=== PATIENT | female | born 1990 | race Caucasian/White ===

== ENCOUNTER 2018-05-17 11:52 | Emergency (ER) | payer OTHER ==
[2018-05-17] MEDS ORDERED: Sodium Chloride 0.9% 1,000 ML IV STA (12:44)
[2018-05-17 12:59] LABS: BASO # 0.01 K/mm3 (0.0-2.0); BASO % 0.1 % (0.0-3.0); EOS # 0.1 (0.0-0.7); EOS % 0.8 % (1.5-5.0); GRAN # 9.21 (1.4-6.5); GRAN % 79.8 % (50.0-68.0); HEMOGLOBIN 11.5 g/dL (12.0-16.0); LYMPH # 1.6 (1.2-3.4); LYMPH % 13.8 % (22.0-35.0); MEAN CELL VOLUME 79.7 fl (80.0-105.0); MEAN CORPUSCULAR HEMOGLOBIN 27.5 pg (25.0-35.0); MEAN CORPUSCULAR HGB CONC 34.5 g/dl (31.0-37.0); MEAN PLATELET VOLUME 8.3 fl (7.0-11.0); MONO # 0.6 (0.1-0.6); MONO % 5.5 % (1.0-6.0); RBC 4.18 10^6/uL (3.5-6.1); RED CELL DISTRIBUTION WIDTH 13.3 % (11.5-14.5); WHITE BLOOD COUNT 11.5 10^3/ul (4.5-11.0)
[2018-05-17 13:04] LABS: ALB/GLOB RATIO 1.1 (1.1-1.8); ALT/SGPT 15 U/L (7-56); AST/SGOT 10 U/L (14-36); BLOOD UREA NITROGEN 8 mg/dL (7-21); CALCIUM 9.7 mg/dL (8.4-10.5); GFR AFRICAN-AMERICAN > 60; GFR NON-AFRICAN AMERICAN > 60; INR 1.02; PARTIAL THROMBOPLASTIN TIME 28.8 Seconds (25.1-36.5); PROTHROMBIN TIME 11.6 SECONDS (9.4-12.5)
--- NOTE | 2018-05-17 13:33 | ED PDOC ---
Arrival/HPI - General Historian: Patient <Rubio Son A - Last Filed: 05/17/18 19:45> <Nima Rincon - Last Filed: 05/19/18 11:51> - General Chief Complaint: Female Genitourinary Time Seen by Provider: 05/17/18 11:57 - History of Present Illness Narrative History of Present Illness (Text): 05/17/18 13:23 27yo female who present to ED for evaluation. States she is currently 15weeks and had brownish vaginal discharge last night. She states that it resolved last night. She spoke with her OB's office today and was advised to go to ED for evaluation. She denies abdominal pain, nausea, vomiting, dizziness , any other complaint. (Rubio Son A) Past Medical History - Provider Review Nursing Documentation Reviewed: Yes - Psychiatric Hx Psychophysiologic Disorder: No Hx Substance Use: No <AdelaidaRubio A - Last Filed: 05/17/18 19:45> Family/Social History - Physician Review Nursing Documentation Reviewed: Yes Family/Social History: Unknown Family HX Smoking Status: Never Smoked Hx Alcohol Use: No Hx Substance Use: No <AdelaidaRubio A - Last Filed: 05/17/18 19:45> Allergies/Home Meds <AdelaidaRubio A - Last Filed: 05/17/18 19:45> <Nima Rincon - Last Filed: 05/19/18 11:51> Allergies/Adverse Reactions: Allergies No Known Allergies Allergy (Verified 05/17/18 12:09) Review of Systems - Physician Review All systems were reviewed & negative as marked: Yes - Review of Systems Constitutional: Normal Eyes: Normal ENT: Normal Respiratory: Normal Cardiovascular: Normal Gastrointestinal: Normal Genitourinary Female: Vaginal Bleeding Musculoskeletal: Normal Skin: Normal Neurological: Normal Endocrine: Normal Hemo/Lymphatic: Normal Psychiatric: Normal <AdelaidaRubio A - Last Filed: 05/17/18 19:45> Physical Exam Vital Signs Reviewed: Yes Temperature: Afebrile Blood Pressure: Normal Pulse: Regular Respiratory Rate: Normal Appearance: Positive for: Well-Appearing, Non-Toxic, Comfortable Pain Distress: None Mental Status: Positive for: Alert and Oriented X 3 - Systems Exam Head: Present: Atraumatic, Normocephalic Pupils: Present: PERRL Extroacular Muscles: Present: EOMI Conjunctiva: Present: Normal Mouth: Present: Moist Mucous Membranes Neck: Present: Normal Range of Motion Respiratory/Chest: Present: Clear to Auscultation, Good Air Exchange. No: Respiratory Distress, Accessory Muscle Use Cardiovascular: Present: Regular Rate and Rhythm, Normal S1, S2. No: Murmurs Abdomen: No: Tenderness, Distention, Peritoneal Signs Back: Present: Normal Inspection Upper Extremity: Present: Normal Inspection. No: Cyanosis, Edema Lower Extremity: Present: Normal Inspection. No: Edema Neurological: Present: GCS=15, CN II-XII Intact, Speech Normal Skin: Present: Warm, Dry, Normal Color. No: Rashes Psychiatric: Present: Alert, Oriented x 3, Normal Insight, Normal Concentration <Rubio Son A - Last Filed: 05/17/18 19:45> Vital Signs Pulse Resp BP Pulse Ox 05/17/18 16:51 87 18 120/89 99 05/17/18 14:55 87 18 110/79 100 Medical Decision Making <Rubio Son A - Last Filed: 05/17/18 19:45> <Nima Rincon - Last Filed: 05/19/18 11:51> ED Course and Treatment: 05/17/18 19:45 PT present to ED For stated history. she denied vaginal bleeding and abdominal pain in ED. Lab was ordered and reviewed. Unremarkable. Trace leukocyte with WBC was noted in her UA and was placed on Macrobid. age US IMPRESSION: Single live intrauterine fetus in variable presentation with mean gestational age of 15 weeks and 6 days. The estimated date of delivery by ultrasound is 01/2019. Placenta is posterior. Cervix is closed. Please note this is a limited OB ultrasound performed on an emergent basis, follow-up anatomic survey is advised. Result was DW the pt . she have her own OB and was advised to f/u with her OB. TRT ED for any new or worsening symptoms. (AdelaidaHappiness A) - Lab Interpretations Lab Results: 05/17/18 12:20 05/17/18 12:20 Lab Results 05/17/18 16:03: Urine Color Yellow, Urine Appearance Clear, Urine pH 6.0, Ur Specific Sarita 1.025, Urine Protein Negative, Urine Glucose (UA) Negative, Urine Ketones >=80, Urine Blood Negative, Urine Nitrate Negative, Urine Bilirubin Negative, Urine Urobilinogen 0.2, Ur Leukocyte Esterase Trace H, Urine RBC 1 - 3, Urine WBC 5 - 10, Ur Epithelial Cells 1 - 3, Urine Bacteria Small, Urine HCG, Qual Positive 05/17/18 13:12: Blood Type Confirm O POSITIVE 05/17/18 12:20: Blood Type O POSITIVE, Antibody Screen Negative, BBK History Checked No verified bt 05/17/18 12:20: Beta HCG, Quant [id number] H 05/17/18 12:20: Sodium 137, Potassium 4.1, Chloride 102, Carbon Dioxide 25, Anion Gap 14, BUN 8, Creatinine 0.4 L, Est GFR ( Amer) > 60, Est GFR (Non -Af Amer) > 60, Random Glucose 103, Calcium 9.7, Total Bilirubin 0.5, AST 10 L, ALT 15, Alkaline Phosphatase 63, Total Protein 7.6, Albumin 4.0, Globulin 3.5, Albumin/Globulin Ratio 1.1 05/17/18 12:20: PT 11.6, INR 1.02, APTT 28.8 05/17/18 12:20: WBC 11.5 H, RBC 4.18, Hgb 11.5 L, Hct 33.3 L, MCV 79.7 L, MCH 27.5, MCHC 34.5, RDW 13.3, Plt Count 309, MPV 8.3, Gran % 79.8 H, Lymph % (Auto ) 13.8 L, Cataño % (Auto) 5.5, Eos % (Auto) 0.8 L, Baso % (Auto) 0.1, Gran # 9.21 H, Lymph # (Auto) 1.6, Cataño # (Auto) 0.6, Eos # (Auto) 0.1, Baso # (Auto) 0.01 - RAD Interpretation Radiology Orders: 05/17/18 12:21 AGE [US] Stat - Medication Orders Current Medication Orders: Discontinued Medications Sodium Chloride (Sodium Chloride 0.9%) 1,000 mls @ 999 mls/hr IV .Q1H1M STA Stop: 05/17/18 13:44 Last Admin: 05/17/18 12:56 Dose: 999 mls/hr eMAR Start Stop Document 05/17/18 12:56 HI (Rec: 05/17/18 12:57 HI [id number]) Intravenous Solution Start Date 05/17/18 Start Time 12:57 Nitrofurantoin Macrocrystals (Macrobid) 100 mg PO ONCE STA PRN Reason: Protocol Stop: 05/17/18 16:40 Last Admin: 05/17/18 17:06 Dose: 100 mg - PA / HAND ALMOND BLANCHER / Resident Statement MD/ has reviewed & agrees with the documentation as recorded. <Nima Rincon - Last Filed: 05/19/18 11:51> Disposition/Present on Arrival - Present on Arrival Any Indicators Present on Arrival: No History of DVT/PE: No History of Uncontrolled Diabetes: No Urinary Catheter: No History of Decub. Ulcer: No History Surgical Site Infection Following: None - Disposition Have Diagnosis and Disposition been Completed?: Yes Disposition Time: 14:40 Patient Plan: Discharge <Rubio Son - Last Filed: 05/17/18 19:45> <Nima Rincon - Last Filed: 05/19/18 11:51> - Disposition Diagnosis: , Vaginal bleeding Disposition: HOME/ ROUTINE Condition: STABLE Discharge Instructions (ExitCare): - The Fourth Month Additional Instructions: Follow up with your OB Return to ED for any new or worsening symptoms Prescriptions: Nitrofurantoin Macrocrystals [Macrobid] 100 mg PO BID #14 cap Referrals: FAMILY PROVIDER,NO [Primary Care Provider] - Follow up with primary Heide Barrientos MD [Staff Provider] - Follow up with primary Forms: [employer] (Macanese)
--- NOTE | 2018-05-17 14:31 | US ---
Date of service: 05/17/2018 PROCEDURE: OB Pelvic Ultrasound HISTORY: vaginal bleeding COMPARISON: None available. FINDINGS: UTERUS: Single live intrauterine fetus in variable presentation. BPD: 3.2 cm corresponding to 16 weeks and 0 day of gestational age. HC: 11.7 cm corresponding to 15 weeks and 6 days of gestational age. AC: 10.2 cm corresponding to 16 weeks and 2 days of gestational age. FL: 1.8 cm corresponding to 15 weeks and 3 days of gestational age. age (Ultrasound estimated): 15 weeks and 6 days. Date of delivery (Ultrasound estimated) : 11/02/2018 Heart rate: 138 bpm. Nisha-gestational hemorrhage: None. Placenta is posterior CERVIX: Long and closed. No cervical abnormality seen. RIGHT OVARY: Measures 2.7 x 2.2 x 2.8 cm. No mass. Normal flow. LEFT OVARY: Measures 3.3 x 2.4 x 3.3 cm. No mass. Normal flow. FREE FLUID: None. OTHER FINDINGS: None. IMPRESSION: Single live intrauterine fetus in variable presentation with mean gestational age of 15 weeks and 6 days. The estimated date of delivery by ultrasound is 11/02/2018. Placenta is posterior. Cervix is closed. Please note this is a limited OB ultrasound performed on an emergent basis, follow-up anatomic survey is advised.
[2018-05-17 16:20] LABS: URINE BILIRUBIN NEGATIVE (NEGATIVE); URINE BLOOD NEGATIVE (NEGATIVE); URINE GLUCOSE (UA) NEGATIVE (NEGATIVE); URINE LEUKOCYTE ESTERASE TRACE Leu/uL (NEGATIVE); URINE PROTEIN NEGATIVE mg/dL (<30 mg/dL); URINE UROBILINOGEN 0.2 E.U./dL (<1 E.U./dL)
[2018-05-17 16:33] LABS: URINE APPEARANCE CLEAR (CLEAR); URINE COLOR YELLOW (YELLOW)
[2018-05-17 16:35] LABS: HCG,QUALITATIVE URINE POSITIVE (NEGATIVE)
[2018-05-17 16:47] VITALS: PULSE 87; RESP 18
[2018-05-17 16:52] VITALS: BP 120/89; O2SAT 99
[2018-05-17 16:59] LABS: URINE BACTERIA SMALL (NEG)
== END 2018-05-17 17:15 | disposition home or self-care (01) ==
LOC: ED 11:52 → MERGE 11:52 → ED 17:15
DX: O46.92 Antepartum hemorrhage, unspecified, second trimester (principal); Z3A.15 15 weeks gestation of pregnancy
CPT/HCPCS: 76815; 80053; 81001; 84702; 84703; 85025; 85610; 85730; 86850; 86900; 87086; 99284; J7030